=== PATIENT | male | born 1960 | race Caucasian/White ===

== ENCOUNTER → 2020-06-07 | Outpatient (CLI) | payer BC ==
--- NOTE | 2020-06-08 05:06 | CT ---
EXAMINATION TYPE: CT chest wo con DATE OF EXAM: 06/07/2020 COMPARISON: 02/22/2019 HISTORY: 59-year-old male Solitary pulmonary nodule. Pt no complaints TECHNIQUE: Contiguous axial scanning of the chest without IV contrast. Coronal and sagittal reconstru ctions performed. CT DLP: 463.80 mGycm Automated exposure control for dose reduction was used. FINDINGS: Heart normal size without pericardial effusion. Aorta normal caliber with bovine configuration to the aortic arch and minimal scattered atelectatic a rch calcifications. Stable prominent but nonenlarged 7 mm left pericardiac lymph node. No thoracic lymphadenopathy by CT size criteria. Strandy atelectasis inferior lingula and posterior right base. Increased patchy opacity anteromedial right midlung, axial image 29. 4 mm anterior middle lobe pulmonary nodule and 5 mm nodule along the right major fissure, axial image 32 are both unchanged. 4 mm peripheral right lower lobe pulmonary nodule, axial image 42 is unchanged. Benign 4 mm calcified granuloma left upper lobe is unchanged. No pleural effusion. There is low attenuation of the hepatic parenchyma. Mild splenomegaly at 14.6 cm, unchanged. Bones: Suspect old healed fracture deformity distal right clavicle shaft. Normal variant sternal fora gabriel. No osseous destructive process. IMPRESSION: 1. SCATTERED 5 MM AND SMALLER PULMONARY NODULES REMAIN UNCHANGED FOR 15 MONTHS SUGGESTING A BENIGN ET IOLOGY. 2. NEW PATCHY OPACITY ANTEROMEDIAL RIGHT MID LUNG COULD REPRESENT AN AREA OF FOCAL ATELECTASIS OR DEV ELOPING PNEUMONIA. CORRELATE WITH PATIENT'S SYMPTOMS. 3. MODERATE TO SEVERE HEPATIC STEATOSIS AND MILD SPLENOMEGALY AT 14.6 CM, UNCHANGED.
== END | disposition home or self-care (01) ==
LOC: RADCTMAIN 18:49
PROVIDERS: ATTEND Nurse Practitioner Family
DX: R91.8 Other nonspecific abnormal finding of lung field (principal); K76.0 Fatty (change of) liver, not elsewhere classified; R16.2 Hepatomegaly with splenomegaly, not elsewhere classified
CPT/HCPCS: 71250